=== PATIENT | female | born 1985 | race Caucasian/White ===

== ENCOUNTER 2017-05-08 20:31 | Emergency (ER) | payer OTHER ==
[~2017-05-08] VITALS: Ht 162.6 cm; Wt 89.7 kg
[~2017-05-08 20:31] MED LIST: MTR600X PO; OXYC5TAB PO; PREN1TAB29 PO
[2017-05-08 20:36] VITALS: Ht 162.6 cm; Wt 89.7 kg
[2017-05-08] MEDS ORDERED: IBUP-1050 PO (21:31)
[2017-05-08] MEDS ORDERED: SODIUM CHLORIDE 0.9% 1000ML 1,000 ML IV STA (21:41)
[2017-05-08] MEDS ORDERED: FAMOTIDINE 20MG/102 ML D5W IV STA (21:41)
[2017-05-08 22:28] LABS: BASO % 0.4 %; BASO ABS # 0.05 K/uL (0-0.2); COMPLETE YES; EOS % 3.2 %; HEMATOCRIT 41.7 % (37-47); IG% 0.4 %; LYMPH % 34.3 %; LYMPH ABS # 3.86 K/uL (1.2-3.4); MEAN CELL VOLUME 85.3 fL (80-100); MEAN CORPUSCULAR HEMOGLOBIN 28.4 pg (25-34); MEAN CORPUSCULAR HGB CONC 33.3 g/dl (32-36); MEAN PLATELET VOLUME 9.7 fL (7.4-10.4); MONO % 7.7 %; PLATELET COUNT 331 K/uL (130-400); RED BLOOD COUNT 4.89 M/uL (4.2-5.4); WHITE BLOOD COUNT 11.27 K/uL (4.8-10.8)
[2017-05-08 22:59] LABS: ALT/SGPT 21 U/L (12-78); BLOOD UREA NITROGEN 9 mg/dl (7-18); BUN/CREATININE RATIO 12.5 (10-20); CALCIUM 8.8 mg/dl (8.5-10.1); CARBON DIOXIDE 28 mmol/L (21-32); CHLORIDE 105 mmol/L (98-107); CREATININE 0.69 mg/dl (0.60-1.20); GLUCOSE 88 mg/dl (70-99); POTASSIUM 3.3 mmol/L (3.5-5.1); SODIUM 139 mmol/L (136-145)
[2017-05-08 23:02] LABS: ALKALINE PHOSPHATASE 90 U/L (45-117); AST/SGOT 12 U/L (15-37)
[2017-05-08 23:39] LABS: URINE APPEARANCE CLEAR (CLEAR); URINE BILIRUBIN NEG (NEG); URINE COLOR YELLOW; URINE NITRITE NEG (NEG); URINE PH 6.5 (4.5-7.5); URINE SPECIFIC GRAVITY 1.014 (1.000-1.030); UROBILINOGEN NEG (NEG); ZZUR CULT IF INDIC CLEAN CATCH NO
[2017-05-08 23:46] LABS: MANUAL MICROSCOPIC REQUIRED? NO; REVIEW REQ? NO
[2017-05-09] MEDS ORDERED: FAMO20TA9 PO (00:40)
--- NOTE | 2017-05-09 00:41 | EMERGENCY ROOM VISIT NOTE ---
History Report prepared by Roseanna: Aliya Garza Under the Supervision of: Dr. Hussain Malik M.D. First contact with patient: 21:21 Chief Complaint: ABDOMINAL PAIN Stated Complaint: ABDOMINAL PAIN Nursing Triage Summary: pt c/o abd pain sent here from [facility] History of Present Illness The patient is a 32 year old female who presents to the Emergency Room with complaints of worsening lower abdominal pain starting this morning. The history is provided through her translating. The pain worsened this evening prompting her to present to the ED. She has never had this pain before. She took some ibuprofen today for the pain. She also has some lower back pain. She denies any nausea, vomiting, diarrhea, constipation, fever, chills, cough, congestion, dysuria, vaginal discharge, vaginal bleeding, or vaginal pain. Her last bowel movement was today. It was normal. Her last menstrual period was 1 week ago. She does not have any medical problems. She has a history of C section. She has had 4 pregnancies. She denies any chance of . Source of History: patient, spouse/significant other Onset: this morning Position: abdomen (lower) Quality: other (pain) Timing: worsening Modifying Factors (Relieving): ibuprofen Associated Symptoms: + back pain, No fevers, No chills, No cough, No nausea , No vomiting, No diarrhea, No urinary symptoms Note: Pt denies constipation, congestion, vaginal bleeding/discharge/pain. Review of Systems See HPI for pertinent positives and negatives. A total of ten systems were reviewed and were otherwise negative. Past Medical & Surgical Medical Problems: (1) Twin gestation in third trimester (2) Twin in third trimester (3) Vaginal delivery Surgical Problems: (1) Normal Family History No pertinent family history stated. Social History Smoking Status: Never Smoker Marital Status: Current/Historical Medications Scheduled Famotidine (Pepcid), 20 MG PO BID Ibuprofen (Advil), 600 MG PO Q6H Allergies Coded Allergies: No Known Allergies (Unverified , 03/06/16) Physical Exam Vital Signs Date Time Temp Pulse Resp B/P (MAP) Pulse Ox O2 Delivery O2 Flow Rate FiO2 05/09/17 00:58 36.7 77 18 107/58 98 05/09/17 00:46 77 18 107/58 98 Room Air 05/08/17 23:00 112/67 05/08/17 22:31 72 100 Room Air 05/08/17 22:30 109/67 05/08/17 22:16 98/80 05/08/17 22:07 68 05/08/17 20:36 36.7 78 18 116/79 98 Room Air Physical Exam GENERAL: Awake, alert, well-appearing, in no distress HENT: Normocephalic, atraumatic. Dry mucous membranes. EYES: Normal conjunctiva. Sclera non-icteric. NECK: Supple. No nuchal rigidity. FROM. No JVD. RESPIRATORY: Clear to auscultation. CARDIAC: Regular rate, normal rhythm. Extremities warm and well perfused. Pulses equal. ABDOMEN: Soft, non-distended. Mild suprapubic and epigastric tenderness to palpation. No peritoneal signs. No rebound or guarding. No masses. RECTAL: Deferred. MUSCULOSKELETAL: Chest examination reveals no tenderness. The back is symmetrical on inspection without obvious abnormality. There is no CVA tenderness to palpation. No joint edema. LOWER EXTREMITIES: Calves are equal size bilaterally and non-tender. No edema. No discoloration. NEURO: Normal sensorium. No sensory or motor deficits noted. SKIN: No rash or jaundice noted. Medical Decision & Procedures Laboratory Results 05/08/17 22:15 Red Blood Count 4.89, Mean Corpuscular Volume 85.3, Mean Corpuscular Hemoglobin 28.4, Mean Corpuscular Hemoglobin Concent 33.3, Mean Platelet Volume 9.7, Neutrophils (%) (Auto) 54.0, Lymphocytes (%) (Auto) 34.3, Monocytes (%) (Auto) 7.7, Eosinophils (%) (Auto) 3.2, Basophils (%) (Auto) 0.4, Neutrophils # (Auto) 6.08, Lymphocytes # (Auto) 3.86, Monocytes # (Auto) 0.87, Eosinophils # (Auto) 0.36, Basophils # (Auto) 0.05 05/08/17 22:15 Test 05/08/17 22:15 05/08/17 23:15 White Blood Count 11.27 K/uL (4.8-10.8) Red Blood Count 4.89 M/uL (4.2-5.4) Hemoglobin 13.9 g/dL (12.0-16.0) Hematocrit 41.7 % (37-47) Mean Corpuscular Volume 85.3 fL (80-100) Mean Corpuscular Hemoglobin 28.4 pg (25-34) Mean Corpuscular Hemoglobin Concent 33.3 g/dl (32-36) Platelet Count 331 K/uL (130-400) Mean Platelet Volume 9.7 fL (7.4-10.4) Neutrophils (%) (Auto) 54.0 % Lymphocytes (%) (Auto) 34.3 % Monocytes (%) (Auto) 7.7 % Eosinophils (%) (Auto) 3.2 % Basophils (%) (Auto) 0.4 % Neutrophils # (Auto) 6.08 K/uL (1.4-6.5) Lymphocytes # (Auto) 3.86 K/uL (1.2-3.4) Monocytes # (Auto) 0.87 K/uL (0.11-0.59) Eosinophils # (Auto) 0.36 K/uL (0-0.5) Basophils # (Auto) 0.05 K/uL (0-0.2) RDW Standard Deviation 43.1 fL (36.4-46.3) RDW Coefficient of Variation 13.9 % (11.5-14.5) Immature Granulocyte % (Auto) 0.4 % Immature Granulocyte # (Auto) 0.05 K/uL (0.00-0.02) Anion Gap 6.0 mmol/L (3-11) Est Creatinine Clear Calc Drug Dose 129.3 ml/min Estimated GFR () 135.4 Estimated GFR (Non- 116.8 BUN/Creatinine Ratio 12.5 (10-20) Calcium Level 8.8 mg/dl (8.5-10.1) Total Bilirubin 0.2 mg/dl (0.2-1) Direct Bilirubin < 0.1 mg/dl (0-0.2) Aspartate Amino Transf (AST/SGOT) 12 U/L (15-37) Alanine Aminotransferase (ALT/SGPT) 21 U/L (12-78) Alkaline Phosphatase 90 U/L (45-117) Total Protein 7.5 gm/dl (6.4-8.2) Albumin 3.7 gm/dl (3.4-5.0) Lipase 184 U/L (73-393) Urine Color YELLOW Urine Appearance CLEAR (CLEAR) Urine pH 6.5 (4.5-7.5) Urine Specific [place] 1.014 (1.000-1.030) Urine Protein NEG (NEG) Urine Glucose (UA) NEG (NEG) Urine Ketones NEG (NEG) Urine Occult Blood NEG (NEG) Urine Nitrite NEG (NEG) Urine Bilirubin NEG (NEG) Urine Urobilinogen NEG (NEG) Urine Leukocyte Esterase TRACE (NEG) Urine WBC (Auto) 1-5 /hpf (0-5) Urine RBC (Auto) 0-4 /hpf (0-4) Urine Hyaline Casts (Auto) 1-5 /lpf (0-5) Urine Epithelial Cells (Auto) 10-20 /lpf (0-5) Urine Bacteria (Auto) NEG (NEG) Urine Test NEG (NEG) Laboratory results reviewed by me Medications Administered Medications (Trade) Dose Ordered Sig/[place] Route Start Time Stop Time Status Last Admin Dose Admin Sodium Chloride 1,000 ml @ 999 mls/hr Q1H1M STAT IV 05/08/17 21:41 05/08/17 22:41 DC 05/08/17 21:41 999 MLS/HR Famotidine (Pepcid 20mg/100 ml) 20 mg ONE STAT IV 05/08/17 21:41 05/08/17 21:46 DC 05/08/17 21:41 20 MG ED Course 2139: The patient was evaluated in room C9. A complete history and physical exam was performed. 2140: Famotidine 20 mg IV, NSS 1000 ml @ 999 mls/hr IV. 0009: I reevaluated the patient. I discussed results and discharge instructions with her and her . They verbalized understanding and agreement. The patient is ready for discharge. Medical Decision I reviewed the patient's past medical history, medications, and the nursing notes as described above. Differential diagnosis: gastritis, gastroenteritis, UTI, pyelonephritis, ovarian cyst, , ectopic , renal stone. The patient is a 32 y/o woman who presents to the ED with generalized abdominal pain since this morning per HPI. On arrival the patient is well-appearing in NAD. AFVSS. Mild epigastric and suprapubic ttp. No peritoneal signs. WBC 11, nonspecific Labs otherwise, unremarkable. Patient given IVF and pepcid with good effect. Sx possibly related to gastritis. D/w patient recommendation for pelvic exam and pelvic US however patient feeling improved and declined. Given patient is well appearing this is reasonable. Findings and plan for follow-up reviwed with patient and . Agreeable and d/c'd per discharge instructions. Medication Reconcilliation Current Medication List: was personally reviewed by me Blood Pressure Screening Patient's blood pressure: Normal blood pressure Blood pressure disposition: Did not require urgent referral Impression Primary Impression: Generalized abdominal pain Scribe Attestation The scribe's documentation has been prepared under my direction and personally reviewed by me in its entirety. I confirm that the note above accurately reflects all work, treatment, procedures, and medical decision making performed by me. Departure Information Dispostion Home / Self-Care Prescriptions Famotidine (PEPCID) 20 Mg Tab 20 MG PO BID for 7 Days, #14 TAB Prov: Hussain Malik M.D. 05/09/17 Referrals No Doctor, Assigned (PCP) Patient Instructions Abdominal Pain, My [facility] Additional Instructions Please follow up with your primary care physician in the next 1-3 days for re- evaluation. Otherwise, your exam and lab results did not show signs of an emergent condition at this time. Drink plenty of fluids to ensure hydration. Pepcid as directed for acid reduction. Return to the emergency department for worsening symptoms as described in the accompanying instructions.
[2017-05-09 00:58] VITALS: BP 107/58; PULSE 77; TEMP 36.7; O2SAT 98
== END 2017-05-09 00:59 | disposition home or self-care (01) ==
LOC: C.EDB 20:32 → C.EDC 05-09 00:59
DX: R10.84 Generalized abdominal pain (principal)

== ENCOUNTER → 2017-08-24 | Outpatient (CLI) | payer OTHER ==
[~2017-08-24] MED LIST changes: +IBUP-1050 PO; -MTR600X PO; -OXYC5TAB PO; -PREN1TAB29 PO
--- NOTE | 2017-08-24 11:25 | DIAGNOSTIC IMAGING REPORT ---
ULTRASOUND ABDOMEN COMPLETE CLINICAL HISTORY: Generalized abdominal pain. Pelvic pain. COMPARISON STUDY: No priors. TECHNIQUE: Real-time, grayscale, and color flow sonography of the abdomen was performed. Images are reviewed in the transverse and longitudinal planes. FINDINGS: Liver: The liver is normal in size and echotexture. There is no intrahepatic biliary ductal dilatation. The main portal vein is patent. Gallbladder: The gallbladder is normal in appearance. No gallstones are identified. There is no gallbladder wall thickening or pericholecystic fluid. A sonographic Bonilla's sign is reportedly absent. The common bile duct measures up to 0.3 cm in diameter. Pancreas: Visualized portions of the pancreatic head and body are normal in appearance. The splenic vein is patent. Spleen: The spleen is normal in size and echotexture, measuring 11.1 cm in length. Kidneys: The kidneys are normal in size and echotexture. There is no hydronephrosis. The right kidney measures 12.3 cm in length and the left kidney measures 11.4 cm in length. No shadowing calculi are identified. Abdominal vasculature: Visualized portions of the abdominal aorta and IVC are normal as imaged. Ascites: None. IMPRESSION: Unremarkable sonographic assessment of the abdomen. Electronically signed by: Chance Sanchez M.D. 08/24/2017 11:24 AM Dictated Date/Time: 08/24/2017 11:22 AM
--- NOTE | 2017-08-24 11:27 | DIAGNOSTIC IMAGING REPORT ---
ULTRASOUND OF THE PELVIS CLINICAL HISTORY: Pelvic/perineal pain. COMPARISON STUDY: No priors. TECHNIQUE: Real-time, grayscale, and color flow sonography of the pelvis is performed both transabdominally and endovaginally. Images are reviewed in the transverse and longitudinal planes. FINDINGS: Uterus: The retroverted uterus is normal in size and echotexture, measuring 8.0 x 5.0 x 5.2 cm. Endometrium: The endometrium is normal in appearance, and the endometrial stripe is normal in thickness measuring up to 0.8 cm. An intrauterine device is in place. Ovaries: The ovaries are normal in size and morphology. The right ovary measures 3.0 x 2.0 x 2.9 cm and the left ovary measures 2.4 x 1.3 x 2.4 cm. Small follicles are seen bilaterally. Normal Doppler waveforms are shown within both ovaries. Pelvis: There is trace free fluid in the cul-de-sac. No concerning adnexal lesion is seen. IMPRESSION: 1. Unremarkable sonographic assessment of the pelvis noting an intrauterine device in place. 2. Trace free fluid in the cul-de-sac is likely within physiologic limits. Electronically signed by: Chance Sanchez M.D. 08/24/2017 11:25 AM Dictated Date/Time: 08/24/2017 11:24 AM
== END | disposition home or self-care (01) ==
LOC: C.ULTRBC 08:33
PROVIDERS: ATTEND Family Medicine
DX: R10.2 Pelvic and perineal pain (principal); R10.84 Generalized abdominal pain; Z97.5 Presence of (intrauterine) contraceptive device

== ENCOUNTER → 2017-08-31 | Outpatient (CLI) | payer OTHER | END | disposition home or self-care (01) | LOC: C.PAPS 09:28 | PROVIDERS: ATTEND Obstetrics & Gynecology | DX: Z01.419 Encounter for gynecological examination (general) (routine) without abnormal findings (principal) ==

== ENCOUNTER → 2017-09-11 | Outpatient (CLI) | payer OTHER ==
[2017-09-11 14:55] LABS: INFLUENZA B ANTIGEN Neg for Influ B (NEG)
== END | disposition home or self-care (01) ==
LOC: C.LABSPEC 14:30
PROVIDERS: ATTEND Family Medicine
DX: J02.9 Acute pharyngitis, unspecified (principal)

== ENCOUNTER → 2017-11-25 | Outpatient (CLI) | payer OTHER ==
--- NOTE | 2017-11-25 15:47 | DIAGNOSTIC IMAGING REPORT ---
LEFT LOWER EXTREMITY VENOUS DOPPLER HISTORY: LEFT LEG PAIN, R/O DVT COMPARISON STUDY: None. FINDINGS: There is normal compressibility, flow, and augmentation within the left lower extremity deep venous system. IMPRESSION: No DVT within the left lower extremity. Electronically signed by: Tobin Boland M.D. 11/25/2017 3:46 PM Dictated Date/Time: 11/25/2017 3:46 PM
== END | disposition home or self-care (01) ==
LOC: C.ULTRBC 14:04
PROVIDERS: ATTEND Family Medicine
DX: M79.605 Pain in left leg (principal)

== ENCOUNTER → 2018-02-11 | Outpatient (CLI) | payer OTHER | END | disposition home or self-care (01) | LOC: C.LABSPEC 13:10 | PROVIDERS: ATTEND Obstetrics & Gynecology | DX: Z30.433 Encounter for removal and reinsertion of intrauterine contraceptive device (principal) ==